=== PATIENT | female | born 1975 | race African-American/Black ===

== ENCOUNTER 2017-05-17 05:34 | Emergency (ER) | payer MEDICARE, MEDICAID ==
[~2017-05-17] VITALS: Ht 157.5 cm; Wt 73.0 kg
[~2017-05-17 05:34] MED LIST: IBUP-1008 PO; TRAMADOL
[2017-05-17] MEDS ORDERED: ONDANSETRON HCL 4MG/2ML VIAL IV STA (06:11)
[2017-05-17] MEDS ORDERED: IBUPROFEN 600MG TABLET PO STA (06:11)
[2017-05-17] MEDS ORDERED: KETOROLAC 30MG/ML VIAL IV STA (06:11)
[2017-05-17 06:28] LABS: BASOPHILS % 0.3 % (0.0-2.0); EOSINOPHILS % 1.8 % (0.0-5.0); HEMATOCRIT. 33.4 % (36.0-48.0); HEMOGLOBIN. 10.8 g/dL (12.0-16.0); LYMPHOCYTES % 10.3 % (20.0-50.0); MEAN CORPUSCULAR HEMOGLOBIN 23.2 pg (28.0-32.0); MEAN CORPUSCULAR VOLUME 71.8 fL (81.0-99.0); MEAN PLATELET VOLUME 7.2 fl (7.4-10.4); MONOCYTES % 6.5 % (2.0-8.0); NEUTROPHILS % 81.1 % (40.0-76.0); PLATELET 284 x1000/uL (130-400); RED BLOOD CELL COUNT 4.65 mill/uL (4.2-5.4); RED CELL DISTRIBUTION WIDTH 19.6 % (11.6-14.6)
[2017-05-17] MEDS ORDERED: MORPHINE SULFATE 4 MG/ML CPJ (NOT FOR IM USE) IV ONE (06:30)
[2017-05-17 06:35] LABS: PROTHROMBIN TIME 10.5 sec
[2017-05-17 06:37] LABS: CARBON DIOXIDE 26 mEq/L (21-32); CHLORIDE 105 mEq/L (98-107)
[2017-05-17 07:04] LABS: GLUCOSE URINE NEGATIVE (NEGATIVE); KETONES URINE NEGATIVE (NEGATIVE); LEUKOCYTE ESTERASE URINE NEGATIVE (NEGATIVE); NITRITE URINE NEGATIVE (NEGATIVE); OCCULT BLOOD URINE 2+ (NEGATIVE); PH URINE 6.5 (4.5-8.0); PROTEIN URINE 2+ (NEGATIVE); SPECIFIC GRAVITY URINE 1.023 (1.005-1.030); UROBILINOGEN URINE 0.2 E.U./dL (0.2-1.0)
[2017-05-17 07:06] LABS: CLARITY URINE CLOUDY (CLEAR); COLOR URINE BLOODY (YELLOW)
[2017-05-17 11:20] VITALS: BP 128/71
[2017-05-17] MEDS ORDERED: IOHEXOL-300 100 ML BOTTLE ONE (12:52)
[2017-05-17] MEDS ORDERED: SODIUM CHLORIDE 0.9% 10ML VIAL ONE (12:52)
== END 2017-05-17 11:43 | disposition home or self-care (01) ==
LOC: ER 05:52
DX: N83.201 Unspecified ovarian cyst, right side (principal); D25.9 Leiomyoma of uterus, unspecified; D64.9 Anemia, unspecified; E46 Unspecified protein-calorie malnutrition; I10 Essential (primary) hypertension; Z68.29 Body mass index [BMI] 29.0-29.9, adult; E83.51 Hypocalcemia; Z98.51 Tubal ligation status; Z88.0 Allergy status to penicillin
CPT/HCPCS: 36415; 74177; 76830; 76856; 80053; 81001; 81025; 83690; 85025; 85610; 96374; 96375; 99285; A4216; J1885; J2270; J2405; Q9967

== ENCOUNTER 2017-06-07 20:06 | Emergency (ER) | payer MEDICARE, MEDICAID ==
[~2017-06-07] VITALS: Ht 170.2 cm; Wt 61.0 kg
[2017-06-08] MEDS ORDERED: KETOROLAC 60MG/2ML VIAL IM ONE (00:45)
[2017-06-08 01:21] VITALS: BP 132/84
== END 2017-06-08 03:06 | disposition home or self-care (01) ==
LOC: ER 20:17
DX: M54.2 Cervicalgia (principal); Z88.0 Allergy status to penicillin; Z88.8 Allergy status to other drugs, medicaments and biological substances
CPT/HCPCS: 81025; 96372; 99283; J1885

== ENCOUNTER 2017-06-12 16:22 | Emergency (ER) | payer MEDICARE, MEDICAID ==
[~2017-06-12] VITALS: Ht 162.6 cm; Wt 65.0 kg
[2017-06-12] MEDS ORDERED: ACETAMINOPHEN 325MG TABLET PO STA (18:17)
[2017-06-12] MEDS ORDERED: ONDANSETRON 4MG ODT PO STA (18:17)
[2017-06-12 18:29] LABS: CLARITY URINE TURBID (CLEAR); COLOR URINE RED (YELLOW); GLUCOSE URINE NEGATIVE (NEGATIVE); KETONES URINE NEGATIVE (NEGATIVE); LEUKOCYTE ESTERASE URINE 1+ (NEGATIVE); NITRITE URINE NEGATIVE (NEGATIVE); OCCULT BLOOD URINE 3+ (NEGATIVE); PROTEIN URINE 1+ (NEGATIVE); SPECIFIC GRAVITY URINE 1.023 (1.005-1.030); UROBILINOGEN URINE 0.2 E.U./dL (0.2-1.0)
[2017-06-12 18:48] LABS: *AMPHETAMINES SCREEN URINE NEGATIVE (NEGATIVE); *BARBITURATES SCREEN URINE NEGATIVE (NEGATIVE); *BENZODIAZEPINES SCREEN URINE NEGATIVE (NEGATIVE); *COCAINE SCREEN URINE NEGATIVE (NEGATIVE); METHADONE URINE SCREEN NEGATIVE (NEGATIVE); OPIATES URINE SCREEN NEGATIVE (NEGATIVE); PHENCYCLIDINE URINE SCREEN NEGATIVE (NEGATIVE)
[2017-06-12 18:53] LABS: CANNABINOID URINE SCREEN PRESUMTIVE POSITIVE (NEGATIVE)
[2017-06-12 19:02] LABS: BASOPHILS % 0.7 % (0.0-2.0); EOSINOPHILS % 1.2 % (0.0-5.0); HEMATOCRIT. 34.3 % (36.0-48.0); HEMOGLOBIN. 11.1 g/dL (12.0-16.0); LYMPHOCYTES % 10.8 % (20.0-50.0); MEAN CORPUSCULAR HEMOGLOBIN 23.5 pg (28.0-32.0); MEAN CORPUSCULAR VOLUME 72.7 fL (81.0-99.0); MEAN PLATELET VOLUME 7.7 fl (7.4-10.4); NEUTROPHILS % 82.3 % (40.0-76.0); PLATELET 247 x1000/uL (130-400); RED BLOOD CELL COUNT 4.72 mill/uL (4.2-5.4); RED CELL DISTRIBUTION WIDTH 20.3 % (11.6-14.6)
[2017-06-12 19:07] LABS: CHLORIDE 107 mEq/L (98-107)
[2017-06-12 19:08] LABS: PROTHROMBIN TIME 10.8 sec
[2017-06-12 19:10] LABS: CARBON DIOXIDE 27 mEq/L (21-32)
[2017-06-12] MEDS ORDERED: KETOROLAC 60MG/2ML VIAL IM ONE (21:30)
[2017-06-12 21:50] VITALS: BP 118/71
== END 2017-06-12 21:58 | disposition home or self-care (01) ==
LOC: ER 16:34
DX: R10.2 Pelvic and perineal pain (principal); D64.9 Anemia, unspecified; Z88.0 Allergy status to penicillin; Z98.890 Other specified postprocedural states
CPT/HCPCS: 36415; 76830; 76856; 80053; 80305; 81001; 81025; 83690; 85025; 85610; 96372; 99285; J1885; Q0162

== ENCOUNTER 2017-07-02 20:30 | Emergency (ER) | payer MEDICARE, MEDICAID ==
[~2017-07-02] VITALS: Ht 157.5 cm; Wt 73.5 kg
[2017-07-02] MEDS ORDERED: ACETAMINOPHEN WITH CODEINE 300/30MG TABLET PO ONE (22:15)
[2017-07-02 22:38] LABS: BASOPHILS % 0.6 % (0.0-2.0); EOSINOPHILS % 2.2 % (0.0-5.0); HEMATOCRIT. 31.7 % (36.0-48.0); HEMOGLOBIN. 10.2 g/dL (12.0-16.0); LYMPHOCYTES % 19.3 % (20.0-50.0); MEAN CORPUSCULAR HEMOGLOBIN 23.4 pg (28.0-32.0); MEAN CORPUSCULAR VOLUME 72.6 fL (81.0-99.0); MEAN PLATELET VOLUME 7.8 fl (7.4-10.4); MONOCYTES % 7.9 % (2.0-8.0); PLATELET 252 x1000/uL (130-400); RED BLOOD CELL COUNT 4.36 mill/uL (4.2-5.4); RED CELL DISTRIBUTION WIDTH 20.2 % (11.6-14.6)
[2017-07-02 22:57] LABS: CARBON DIOXIDE 26 mEq/L (21-32); CHLORIDE 109 mEq/L (98-107)
[2017-07-02 23:28] LABS: CLARITY URINE CLEAR (CLEAR); COLOR URINE YELLOW (YELLOW); GLUCOSE URINE NEGATIVE (NEGATIVE); KETONES URINE NEGATIVE (NEGATIVE); LEUKOCYTE ESTERASE URINE NEGATIVE (NEGATIVE); NITRITE URINE NEGATIVE (NEGATIVE); OCCULT BLOOD URINE NEGATIVE (NEGATIVE); PH URINE 5.5 (4.5-8.0); PROTEIN URINE NEGATIVE (NEGATIVE); SPECIFIC GRAVITY URINE 1.019 (1.005-1.030)
[2017-07-02 23:45] VITALS: BP 127/78
== END 2017-07-02 23:59 | disposition home or self-care (01) ==
LOC: ER 20:30
DX: D25.9 Leiomyoma of uterus, unspecified (principal); N83.209 Unspecified ovarian cyst, unspecified side; Z88.0 Allergy status to penicillin
CPT/HCPCS: 36415; 76830; 76856; 80053; 81003; 81025; 85025; 99285

== ENCOUNTER 2017-08-26 08:50 | Observation (INO) | payer MEDICARE, MEDICAID ==
[~2017-08-26] VITALS: Ht 157.5 cm; Wt 70.8 kg
[2017-08-26] MEDS ORDERED: NAPR-679 PO (08:56)
[2017-08-26] MEDS ORDERED: IBUPROFEN 600MG TABLET PO ONE (10:45)
[2017-08-26 12:15] LABS: GLUCOSE URINE TRACE (NEGATIVE); KETONES URINE 2+ (NEGATIVE); LEUKOCYTE ESTERASE URINE 3+ (NEGATIVE); NITRITE URINE POSITIVE (NEGATIVE); OCCULT BLOOD URINE 3+ (NEGATIVE); PH URINE 6.5 (4.5-8.0); PROTEIN URINE 3+ (NEGATIVE); SPECIFIC GRAVITY URINE 1.022 (1.005-1.030)
[2017-08-26 12:17] LABS: CLARITY URINE CLOUDY (CLEAR); COLOR URINE BLOODY (YELLOW)
[2017-08-26 12:35] LABS: *AMPHETAMINES SCREEN URINE NEGATIVE (NEGATIVE); *BARBITURATES SCREEN URINE NEGATIVE (NEGATIVE); *BENZODIAZEPINES SCREEN URINE NEGATIVE (NEGATIVE); *COCAINE SCREEN URINE NEGATIVE (NEGATIVE); METHADONE URINE SCREEN NEGATIVE (NEGATIVE); OPIATES URINE SCREEN NEGATIVE (NEGATIVE); PHENCYCLIDINE URINE SCREEN NEGATIVE (NEGATIVE)
[2017-08-26 12:40] LABS: CANNABINOID URINE SCREEN PRESUMTIVE POSITIVE (NEGATIVE)
[2017-08-26] MEDS ORDERED: SODIUM CHLORIDE 0.9% 1,000 ML IV ONE (14:45)
[2017-08-26 15:07] LABS: BASOPHILS % 0.4 % (0.0-2.0); EOSINOPHILS % 1.7 % (0.0-5.0); HEMATOCRIT. 31.2 % (36.0-48.0); HEMOGLOBIN. 10.1 g/dL (12.0-16.0); LYMPHOCYTES % 12.7 % (20.0-50.0); MEAN CORPUSCULAR HEMOGLOBIN 23.1 pg (28.0-32.0); MEAN CORPUSCULAR VOLUME 71.6 fL (81.0-99.0); MEAN PLATELET VOLUME 7.6 fl (7.4-10.4); MONOCYTES % 8.4 % (2.0-8.0); NEUTROPHILS % 76.8 % (40.0-76.0); PLATELET 243 x1000/uL (130-400); RED BLOOD CELL COUNT 4.36 mill/uL (4.2-5.4); RED CELL DISTRIBUTION WIDTH 19.2 % (11.6-14.6)
[2017-08-26 15:08] LABS: PROTHROMBIN TIME 10.5 sec (9.4-11.6)
[2017-08-26 15:16] LABS: CARBON DIOXIDE 27 mEq/L (21-32); CHLORIDE 107 mEq/L (98-107)
[2017-08-26 15:53] LABS: HEPATITIS B SURFACE ANTIGEN NEGATIVE
[2017-08-26 16:22] LABS: HEPATITIS B CORE AB IGM NEGATIVE
[2017-08-26 16:23] LABS: HEPATITIS A AB IGM NEGATIVE (NEGATIVE)
[2017-08-26] MEDS ORDERED: MORPHINE SULFATE 2 MG/ML CPJ (NOT FOR IM USE) IV ONE (17:45)
[2017-08-26] MEDS ORDERED: LEVOFLOXACIN 500MG PREMIX 100 ML IV ONE (17:45)
[2017-08-26] MEDS ORDERED: MORPHINE SULFATE 4 MG/ML CPJ (NOT FOR IM USE) IV NR (18:21)
[2017-08-26] MEDS ORDERED: NAPROXEN 375MG TABLET PO PRN (19:30)
[2017-08-26] MEDS ORDERED: MAGNESIUM/ALUMINUM HYDROXIDE/SIMETHICONE 30ML UDC PO PRN (19:30)
[2017-08-26] MEDS ORDERED: MAGNESIUM HYDROXIDE 400MG/5ML 30ML UDC PO PRN (19:30)
[2017-08-26] MEDS ORDERED: ACETAMINOPHEN 325MG TABLET PO PRN (19:30)
[2017-08-26] MEDS ORDERED: ONDANSETRON HCL 4MG/2ML VIAL IV PRN (19:30)
[2017-08-26] MEDS ORDERED: DIPHENHYDRAMINE 50MG/ML VIAL IV PRN (19:30)
[2017-08-26 20:00] VITALS: BP 136/85
[2017-08-26 21:15] VITALS: BP 136/85
[2017-08-26] MEDS ORDERED: QUETIAPINE FUMARATE 100MG TABLET PO SCH (21:30)
[2017-08-26] MEDS: SODIUM CHLORIDE 0.9% INJ 3ML FLUSH IVF SCH (22:08)
[2017-08-27] VITALS: BP 102/62
[2017-08-27] MEDS ORDERED: THIA100T13 PO (00:38)
[2017-08-27] MEDS ORDERED: RIFA300C4 PO (00:38)
[2017-08-27] MEDS ORDERED: FERR-71 PO (00:38)
[2017-08-27] MEDS ORDERED: TRAM50TA3 PO (00:38)
[2017-08-27] MEDS ORDERED: NAPR-679 PO (00:38)
[2017-08-27] MEDS ORDERED: QUET200T4 PO (00:38)
[2017-08-27 04:00] VITALS: BP 102/62
[2017-08-27] MEDS: SODIUM CHLORIDE 0.9% INJ 3ML FLUSH IVF SCH ×2 (06:02→13:16)
[2017-08-27 08:00] VITALS: BP 115/65
[2017-08-27 12:00] VITALS: BP 118/80
[2017-08-27] MEDS ORDERED: LEVOFLOXACIN 500MG PREMIX 100 ML IV SCH (14:00)
[2017-08-27 16:00] VITALS: BP 127/77
[2017-08-27 16:15] VITALS: BP 127/77
== END 2017-08-27 19:00 | disposition home or self-care (01) ==
LOC: ER 08:50 → 8WST 14:51 → INTOOBSV 14:51 → EDBEDREQ 14:56 → ENRESERV 17:41
PROVIDERS: ADMIT Internal Medicine; ATTEND Internal Medicine
DX: R10.30 Lower abdominal pain, unspecified (principal); R10.2 Pelvic and perineal pain; F12.10 Cannabis abuse, uncomplicated; F99 Mental disorder, not otherwise specified; M19.90 Unspecified osteoarthritis, unspecified site; S76.011A Strain of muscle, fascia and tendon of right hip, initial encounter; X58.XXXA Exposure to other specified factors, initial encounter; Y93.89 Activity, other specified; Y92.89 Other specified places as the place of occurrence of the external cause; Y99.8 Other external cause status
CPT/HCPCS: 36415; 72100; 73552; 74176; 80053; 80305; 81001; 81025; 83036; 83690; 85025; 85610; 85651; 87040; 87086; 96361; 96365; 96366; 96375; 99285; G0378; J1956; J2270; J2405; J7030; 86705; 86709; 86803; 87340

== ENCOUNTER 2017-09-18 09:39 | Emergency (ER) | payer MEDICARE, MEDICAID ==
[~2017-09-18] VITALS: Ht 157.5 cm; Wt 72.0 kg
[~2017-09-18 09:39] MED LIST changes: +FERR-71 PO; +NAPR-679 PO; +QUET200T4 PO; +RIFA300C4 PO; +THIA100T13 PO; +TRAM50TA3 PO; -TRAMADOL
[2017-09-18] MEDS ORDERED: KETOROLAC 60MG/2ML VIAL IM STA (10:46)
[2017-09-18] MEDS ORDERED: ONDANSETRON 4MG ODT PO ONE (11:00)
[2017-09-18 11:20] LABS: GLUCOSE URINE NEGATIVE (NEGATIVE); KETONES URINE NEGATIVE (NEGATIVE); LEUKOCYTE ESTERASE URINE NEGATIVE (NEGATIVE); NITRITE URINE NEGATIVE (NEGATIVE); OCCULT BLOOD URINE NEGATIVE (NEGATIVE); PROTEIN URINE NEGATIVE (NEGATIVE); SPECIFIC GRAVITY URINE 1.015 (1.005-1.030); UROBILINOGEN URINE 0.2 E.U./dL (0.2-1.0)
[2017-09-18 11:29] LABS: CLARITY URINE CLEAR (CLEAR); COLOR URINE PALE YELLOW (YELLOW)
[2017-09-18 12:05] LABS: CHLORIDE 108 mEq/L (98-107)
[2017-09-18 12:13] LABS: CARBON DIOXIDE 25 mEq/L (21-32)
[2017-09-18 12:17] LABS: BASOPHILS % 0.6 % (0.0-2.0); HEMOGLOBIN. 10.4 g/dL (12.0-16.0); LYMPHOCYTES % 17.2 % (20.0-50.0); MEAN CORPUSCULAR HEMOGLOBIN 23.2 pg (28.0-32.0); MEAN CORPUSCULAR VOLUME 71.5 fL (81.0-99.0); MEAN PLATELET VOLUME 8.3 fl (7.4-10.4); MONOCYTES % 8.9 % (2.0-8.0); NEUTROPHILS % 71.3 % (40.0-76.0); PLATELET 263 x1000/uL (130-400); RED BLOOD CELL COUNT 4.47 mill/uL (4.2-5.4); RED CELL DISTRIBUTION WIDTH 19.2 % (11.6-14.6)
[2017-09-18 13:06] VITALS: BP 123/74
== END 2017-09-18 13:14 | disposition home or self-care (01) ==
LOC: ER 09:49
DX: M54.89 Other dorsalgia (principal); M19.90 Unspecified osteoarthritis, unspecified site; Z98.890 Other specified postprocedural states; Z88.0 Allergy status to penicillin; Z88.8 Allergy status to other drugs, medicaments and biological substances
CPT/HCPCS: 36415; 76770; 80053; 81003; 81025; 85025; 96372; 99285; J1885; Q0162

== ENCOUNTER 2017-09-18 23:34 | Emergency (ER) | payer MEDICARE, MEDICAID ==
[~2017-09-18] VITALS: Ht 157.5 cm; Wt 68.0 kg
[2017-09-19 07:53] LABS: GLUCOSE URINE NEGATIVE (NEGATIVE); KETONES URINE 1+ (NEGATIVE); LEUKOCYTE ESTERASE URINE NEGATIVE (NEGATIVE); NITRITE URINE NEGATIVE (NEGATIVE); OCCULT BLOOD URINE TRACE (NEGATIVE); PH URINE 5.5 (4.5-8.0); PROTEIN URINE NEGATIVE (NEGATIVE); UROBILINOGEN URINE 0.2 E.U./dL (0.2-1.0)
[2017-09-19 07:55] LABS: CLARITY URINE CLEAR (CLEAR); COLOR URINE YELLOW (YELLOW)
[2017-09-19 10:15] VITALS: BP 118/81
[2017-09-21 04:17] LABS: CHLAMYDIA TRACHOMATIS NAA Negative (Negative); NEISSERIA GONORRHOEAE NAA Negative (Negative)
== END 2017-09-19 10:17 | disposition home or self-care (01) ==
LOC: ER 23:34
DX: N39.0 Urinary tract infection, site not specified (principal); N76.0 Acute vaginitis; Z88.0 Allergy status to penicillin; Z98.890 Other specified postprocedural states
CPT/HCPCS: 81001; 87210; 87491; 87591; 99284

== ENCOUNTER 2017-09-20 15:50 | Emergency (ER) | payer MEDICARE, MEDICAID ==
[~2017-09-20] VITALS: Ht 167.6 cm; Wt 71.0 kg
[2017-09-20] MEDS ORDERED: ONDANSETRON HCL 4MG/2ML VIAL IV STA (16:58)
[2017-09-20] MEDS ORDERED: SODIUM CHLORIDE 0.9% 1,000 ML IV ONE (16:58)
[2017-09-20] MEDS ORDERED: KETOROLAC 30MG/ML VIAL IV STA (16:58)
[2017-09-20 17:28] LABS: BASOPHILS % 0.3 % (0.0-2.0); EOSINOPHILS % 0.8 % (0.0-5.0); HEMATOCRIT. 32.9 % (36.0-48.0); HEMOGLOBIN. 10.6 g/dL (12.0-16.0); LYMPHOCYTES % 7.9 % (20.0-50.0); MEAN CORPUSCULAR HEMOGLOBIN 23.4 pg (28.0-32.0); MEAN CORPUSCULAR VOLUME 72.4 fL (81.0-99.0); MEAN PLATELET VOLUME 8.2 fl (7.4-10.4); MONOCYTES % 4.7 % (2.0-8.0); NEUTROPHILS % 86.3 % (40.0-76.0); PLATELET 255 x1000/uL (130-400); RED BLOOD CELL COUNT 4.54 mill/uL (4.2-5.4); RED CELL DISTRIBUTION WIDTH 19.1 % (11.6-14.6)
[2017-09-20 17:29] LABS: CARBON DIOXIDE 26 mEq/L (21-32); CHLORIDE 110 mEq/L (98-107)
[2017-09-20 18:04] LABS: CLARITY URINE TURBID (CLEAR); COLOR URINE YELLOW (YELLOW); GLUCOSE URINE NEGATIVE (NEGATIVE); KETONES URINE 1+ (NEGATIVE); LEUKOCYTE ESTERASE URINE NEGATIVE (NEGATIVE); NITRITE URINE NEGATIVE (NEGATIVE); OCCULT BLOOD URINE 2+ (NEGATIVE); PROTEIN URINE NEGATIVE (NEGATIVE); SPECIFIC GRAVITY URINE 1.029 (1.005-1.030); UROBILINOGEN URINE 0.2 E.U./dL (0.2-1.0)
[2017-09-20 18:27] LABS: *AMPHETAMINES SCREEN URINE NEGATIVE (NEGATIVE); *BARBITURATES SCREEN URINE NEGATIVE (NEGATIVE); *BENZODIAZEPINES SCREEN URINE NEGATIVE (NEGATIVE); *COCAINE SCREEN URINE NEGATIVE (NEGATIVE); METHADONE URINE SCREEN NEGATIVE (NEGATIVE); OPIATES URINE SCREEN NEGATIVE (NEGATIVE); PHENCYCLIDINE URINE SCREEN NEGATIVE (NEGATIVE)
[2017-09-20 18:31] LABS: CANNABINOID URINE SCREEN PRESUMTIVE POSITIVE (NEGATIVE)
[2017-09-20] MEDS ORDERED: HYDROCODONE/ACETAMINOPHEN 5/325MG TABLET PO ONE (20:30)
[2017-09-20 20:32] VITALS: BP 123/3
== END 2017-09-20 21:16 | disposition home or self-care (01) ==
LOC: ER 15:50
DX: R10.31 Right lower quadrant pain (principal); N83.201 Unspecified ovarian cyst, right side; D25.9 Leiomyoma of uterus, unspecified; F20.9 Schizophrenia, unspecified; Z88.0 Allergy status to penicillin; Z88.8 Allergy status to other drugs, medicaments and biological substances
CPT/HCPCS: 36415; 74176; 76830; 76856; 80053; 80305; 81001; 85025; 96361; 96374; 96375; 99285; J1885; J2405; J7030

== ENCOUNTER 2017-10-09 22:28 | Emergency (ER) | payer MEDICARE, MEDICAID ==
[~2017-10-09] VITALS: Ht 157.5 cm; Wt 70.0 kg
[2017-10-10 02:29] VITALS: BP 113/78
[2017-10-10] MEDS ORDERED: KETOROLAC 60MG/2ML VIAL IM ONE (02:30)
== END 2017-10-10 02:38 | disposition home or self-care (01) ==
LOC: ER 22:38
DX: M79.604 Pain in right leg (principal); F20.9 Schizophrenia, unspecified; F31.9 Bipolar disorder, unspecified; Z88.0 Allergy status to penicillin; Z79.899 Other long term (current) drug therapy
CPT/HCPCS: 93971; 96372; 99284; J1885

== ENCOUNTER 2017-10-12 17:24 | Emergency (ER) | payer MEDICARE, MEDICAID ==
[~2017-10-12] VITALS: Ht 157.5 cm; Wt 71.0 kg
[2017-10-13 00:28] VITALS: BP 135/78
[2017-10-13 02:33] LABS: CLARITY URINE CLOUDY (CLEAR); COLOR URINE YELLOW (YELLOW); GLUCOSE URINE NEGATIVE (NEGATIVE); KETONES URINE 3+ (NEGATIVE); LEUKOCYTE ESTERASE URINE 2+ (NEGATIVE); NITRITE URINE NEGATIVE (NEGATIVE); OCCULT BLOOD URINE 2+ (NEGATIVE); PROTEIN URINE NEGATIVE (NEGATIVE); SPECIFIC GRAVITY URINE 1.031 (1.005-1.030)
== END 2017-10-13 05:10 | disposition left against medical advice (07) ==
LOC: ER 21:10
DX: N89.8 Other specified noninflammatory disorders of vagina (principal); R30.0 Dysuria; Z53.21 Procedure and treatment not carried out due to patient leaving prior to being seen by health care provider
CPT/HCPCS: 81001; 81025; 99283

== ENCOUNTER 2017-10-16 02:31 | Emergency (ER) | payer MEDICARE, MEDICAID ==
[~2017-10-16] VITALS: Ht 170.2 cm; Wt 73.0 kg
[2017-10-16] MEDS ORDERED: ONDANSETRON HCL 4MG/2ML VIAL IV NR (02:40)
[2017-10-16] MEDS ORDERED: FAMOTIDINE 20MG/2ML VIAL IV NR (02:40)
[2017-10-16] MEDS ORDERED: MORPHINE SULFATE 10 MG/ML CPJ IV NR (02:40)
[2017-10-16] MEDS ORDERED: SODIUM CHLORIDE 0.9% 1,000 ML IV NR (02:40)
[2017-10-16 03:28] LABS: BASOPHILS % 0.5 % (0.0-2.0); EOSINOPHILS % 2.5 % (0.0-5.0); HEMATOCRIT. 33.2 % (36.0-48.0); HEMOGLOBIN. 10.8 g/dL (12.0-16.0); LYMPHOCYTES % 19.4 % (20.0-50.0); MEAN CORPUSCULAR HEMOGLOBIN 23.5 pg (28.0-32.0); MEAN CORPUSCULAR VOLUME 72.1 fL (81.0-99.0); MEAN PLATELET VOLUME 7.9 fl (7.4-10.4); MONOCYTES % 6.7 % (2.0-8.0); NEUTROPHILS % 70.9 % (40.0-76.0); PLATELET 270 x1000/uL (130-400); RED BLOOD CELL COUNT 4.61 mill/uL (4.2-5.4); RED CELL DISTRIBUTION WIDTH 19.8 % (11.6-14.6)
[2017-10-16 03:35] LABS: HCG SCREEN NEGATIVE
[2017-10-16 03:37] LABS: PROTHROMBIN TIME 10.5 sec (9.4-11.6)
[2017-10-16 03:42] LABS: CARBON DIOXIDE 26 mEq/L (21-32); CHLORIDE 108 mEq/L (98-107); ETHANOL BLOOD < 10 mg/dL
[2017-10-16 03:56] LABS: CLARITY URINE CLEAR (CLEAR); COLOR URINE YELLOW (YELLOW); GLUCOSE URINE NEGATIVE (NEGATIVE); KETONES URINE NEGATIVE (NEGATIVE); LEUKOCYTE ESTERASE URINE NEGATIVE (NEGATIVE); NITRITE URINE NEGATIVE (NEGATIVE); OCCULT BLOOD URINE 3+ (NEGATIVE); PROTEIN URINE NEGATIVE (NEGATIVE); SPECIFIC GRAVITY URINE 1.023 (1.005-1.030); UROBILINOGEN URINE 0.2 E.U./dL (0.2-1.0)
[2017-10-16 04:13] LABS: *AMPHETAMINES SCREEN URINE NEGATIVE (NEGATIVE); *BARBITURATES SCREEN URINE NEGATIVE (NEGATIVE); *BENZODIAZEPINES SCREEN URINE NEGATIVE (NEGATIVE); *COCAINE SCREEN URINE NEGATIVE (NEGATIVE); METHADONE URINE SCREEN NEGATIVE (NEGATIVE); OPIATES URINE SCREEN NEGATIVE (NEGATIVE); PHENCYCLIDINE URINE SCREEN NEGATIVE (NEGATIVE)
[2017-10-16 04:32] LABS: CANNABINOID URINE SCREEN PRESUMTIVE POSITIVE (NEGATIVE)
[2017-10-16 06:00] VITALS: BP 130/70
[2017-10-16] MEDS ORDERED: ONDANSETRON 4MG ODT PO ONE (06:30)
== END 2017-10-16 06:28 | disposition home or self-care (01) ==
LOC: ER 02:31
DX: R10.9 Unspecified abdominal pain (principal); D25.9 Leiomyoma of uterus, unspecified; N92.0 Excessive and frequent menstruation with regular cycle; Z88.0 Allergy status to penicillin; Z88.1 Allergy status to other antibiotic agents; Z98.51 Tubal ligation status
CPT/HCPCS: 36415; 74176; 80053; 80305; 81001; 83690; 84703; 85025; 85610; 96361; 96374; 96375; 99285; G0482; J2270; J2405; J3490; J7030; Q0162

== ENCOUNTER 2017-12-05 03:59 | Emergency (ER) | payer MEDICAID, MEDICARE ==
[~2017-12-05] VITALS: Ht 157.5 cm; Wt 69.0 kg
[2017-12-05 08:09] LABS: BASOPHILS % 0.4 % (0.0-2.0); EOSINOPHILS % 1.1 % (0.0-5.0); HEMATOCRIT. 33.1 % (36.0-48.0); HEMOGLOBIN. 10.3 g/dL (12.0-16.0); LYMPHOCYTES % 10.1 % (20.0-50.0); MEAN CORPUSCULAR VOLUME 70.6 fL (81.0-99.0); MEAN PLATELET VOLUME 6.7 fl (7.4-10.4); MONOCYTES % 5.7 % (2.0-8.0); NEUTROPHILS % 82.7 % (40.0-76.0); PLATELET 362 x1000/uL (130-400)
[2017-12-05 08:17] LABS: PROTHROMBIN TIME 10.3 sec (9.4-11.6)
[2017-12-05 08:38] LABS: HCG SCREEN NEGATIVE
[2017-12-05 08:55] LABS: PLATELET ESTIMATE NORMAL
[2017-12-05 09:04] LABS: CHLORIDE 110 mEq/L (98-107)
[2017-12-05 09:11] LABS: CARBON DIOXIDE 26 mEq/L (21-32)
[2017-12-05 10:05] VITALS: BP 137/77
[2017-12-05 10:11] LABS: KETONES URINE TRACE (NEGATIVE); LEUKOCYTE ESTERASE URINE 2+ (NEGATIVE); NITRITE URINE NEGATIVE (NEGATIVE); OCCULT BLOOD URINE 3+ (NEGATIVE); PROTEIN URINE 2+ (NEGATIVE); SPECIFIC GRAVITY URINE 1.028 (1.005-1.030)
[2017-12-05 10:13] LABS: CLARITY URINE TURBID (CLEAR); COLOR URINE RED (YELLOW)
[2017-12-05] MEDS ORDERED: LEVOFLOXACIN 750MG PREMIX 150 ML IV ONE (11:00)
== END 2017-12-05 12:45 | disposition home or self-care (01) ==
LOC: ER 04:14
DX: N39.0 Urinary tract infection, site not specified (principal); D25.9 Leiomyoma of uterus, unspecified; R03.0 Elevated blood-pressure reading, without diagnosis of hypertension; Z88.0 Allergy status to penicillin; Z88.8 Allergy status to other drugs, medicaments and biological substances; Z87.440 Personal history of urinary (tract) infections; Z79.899 Other long term (current) drug therapy
CPT/HCPCS: 36415; 76830; 76856; 80053; 81001; 83690; 84703; 85025; 85610; 96365; 96366; 99285; J1956

== ENCOUNTER 2018-01-14 22:58 | Emergency (ER) | payer MEDICARE, OTHER ==
[~2018-01-14] VITALS: Ht 157.5 cm; Wt 69.6 kg
[2018-01-15 03:54] LABS: CLARITY URINE CLEAR (CLEAR); COLOR URINE YELLOW (YELLOW); KETONES URINE NEGATIVE (NEGATIVE); LEUKOCYTE ESTERASE URINE NEGATIVE (NEGATIVE); NITRITE URINE NEGATIVE (NEGATIVE); OCCULT BLOOD URINE NEGATIVE (NEGATIVE); PH URINE 6.5 (4.5-8.0); PROTEIN URINE NEGATIVE (NEGATIVE); SPECIFIC GRAVITY URINE 1.014 (1.005-1.030)
[2018-01-15 04:10] VITALS: BP 125/75
== END 2018-01-15 04:31 | disposition home or self-care (01) ==
LOC: ER 22:58
DX: N39.0 Urinary tract infection, site not specified (principal); F17.200 Nicotine dependence, unspecified, uncomplicated; J45.909 Unspecified asthma, uncomplicated; Z98.890 Other specified postprocedural states; Z88.0 Allergy status to penicillin; Z98.51 Tubal ligation status; Z88.8 Allergy status to other drugs, medicaments and biological substances
CPT/HCPCS: 81003; 81025; 87077; 87086; 99284

== ENCOUNTER 2018-02-11 15:12 | Emergency (ER) | payer MEDICARE, OTHER ==
[2018-02-11] MEDS ORDERED: pepcid (15:55)
[2018-02-11] MEDS ORDERED: levaquin (15:55)
[2018-02-11] MEDS ORDERED: KETOROLAC 60MG/2ML VIAL IM ONE (21:00)
[2018-02-11 21:45] VITALS: BP 122/67
== END 2018-02-11 21:45 | disposition home or self-care (01) ==
LOC: ER 17:00
DX: R51 Headache (principal); K21.9 Gastro-esophageal reflux disease without esophagitis; F41.9 Anxiety disorder, unspecified; F17.200 Nicotine dependence, unspecified, uncomplicated; F12.10 Cannabis abuse, uncomplicated; Z88.0 Allergy status to penicillin; Z88.8 Allergy status to other drugs, medicaments and biological substances
CPT/HCPCS: 81025; 96372; 99283; J1885

== ENCOUNTER 2025-06-29 19:39 | Emergency (ER) | payer BC, MEDICAID ==
[~2025-06-29] VITALS: Ht 157.5 cm; Wt 84.0 kg
[~2025-06-29 19:39] MED LIST changes: -RIFA300C4 PO; +levaquin; +pepcid
[2025-06-29 19:51] VITALS: TEMP 36.9; O2SAT 98
[2025-06-29 20:55] VITALS: BP 109/81; PULSE 107; RESP 18; O2SAT 100
[2025-06-30] MEDS ORDERED: NAPR-679 MT (16:04)
[2025-06-30] MEDS ORDERED: LIDO-53 TP (16:04)
[2025-06-30] MEDS ORDERED: ACET-2708 MT (16:04)
== END 2025-06-29 21:59 | disposition left against medical advice (07) ==
LOC: ER 19:39
DX: R07.89 Other chest pain (principal); F12.10 Cannabis abuse, uncomplicated; F17.210 Nicotine dependence, cigarettes, uncomplicated; I10 Essential (primary) hypertension; E78.00 Pure hypercholesterolemia, unspecified; F20.9 Schizophrenia, unspecified; F31.9 Bipolar disorder, unspecified; F41.9 Anxiety disorder, unspecified; Z88.0 Allergy status to penicillin; Z88.1 Allergy status to other antibiotic agents; Z79.899 Other long term (current) drug therapy; Z98.890 Other specified postprocedural states
CPT/HCPCS: 71045; 93005; 99283

== ENCOUNTER 2025-06-30 12:41 | Emergency (ER) | payer BC, MEDICAID ==
[~2025-06-30] VITALS: Ht 157.5 cm; Wt 83.0 kg
[2025-06-30 12:47] VITALS: O2SAT 98
[2025-06-30 13:59] LABS: BASOPHILS % 0.4 % (0.0-2.0); EOSINOPHILS % 1.7 % (0.0-5.0); HEMATOCRIT. 37.4 % (36.0-48.0); HEMOGLOBIN. 12.4 g/dL (12.0-16.0); LYMPHOCYTES % 19.9 % (20.0-50.0); MEAN PLATELET VOLUME 7.6 fl (7.4-10.4); MONOCYTES % 9.9 % (2.0-8.0); NEUTROPHILS % 68.1 % (40.0-76.0); PLATELET 292 x1000/uL (130-400); RED BLOOD CELL COUNT 4.71 mill/uL (4.2-5.4); RED CELL DISTRIBUTION WIDTH 14.5 % (11.6-14.6)
[2025-06-30 14:06] LABS: CREATININE 0.8 mg/dL (0.6-1.0); TROPONIN I HIGH SENSITIVITY < 4 ng/L (3.0-34); UREA NITROGEN BLOOD 7 mg/dL (9-23)
[2025-06-30] MEDS: KETOROLAC 15MG/ML VIAL IM ONE (15:08)
[2025-06-30] MEDS: ACETAMINOPHEN 325MG TABLET PO ONE (15:08)
[2025-06-30] MEDS: LIDOCAINE 5% PATCH TOP SCH (15:20)
[2025-06-30] MEDS ORDERED: LIDO-53 TP (16:04)
[2025-06-30] MEDS ORDERED: ACET-2708 MT (16:04)
[2025-06-30] MEDS ORDERED: NAPR-679 MT (16:04)
[2025-06-30 16:25] VITALS: BP 140/96; PULSE 99; RESP 16; TEMP 36.6; O2SAT 98
== END 2025-06-30 20:56 | disposition home or self-care (01) ==
LOC: ER 12:41
DX: S20.219A Contusion of unspecified front wall of thorax, initial encounter (principal); F12.10 Cannabis abuse, uncomplicated; I10 Essential (primary) hypertension; E78.00 Pure hypercholesterolemia, unspecified; F31.9 Bipolar disorder, unspecified; F41.9 Anxiety disorder, unspecified; Z88.0 Allergy status to penicillin; Z79.899 Other long term (current) drug therapy; Z98.890 Other specified postprocedural states; Z86.59 Personal history of other mental and behavioral disorders; V49.9XXA Car occupant (driver) (passenger) injured in unspecified traffic accident, initial encounter; Y93.89 Activity, other specified; Y92.89 Other specified places as the place of occurrence of the external cause; Y99.8 Other external cause status
CPT/HCPCS: 99285; 80048; 85025; 84484; 36415; 71111; 93005; 96372; J1885